=== PATIENT | female | born 1990 | race Caucasian/White ===

== ENCOUNTER 2017-04-24 15:26 | Emergency (ER) | payer OTHER ==
--- NOTE | 2017-04-24 16:52 | ER Document Report ---
HPI - HPI Patient complains to provider of: Medication refill Onset: Other - Past month Onset/Duration: Gradual Quality of pain: No pain Pain Level: Denies Context: States that she just recently ran out of her metformin and was out of her glipizide for the past month. Patient states that she went to the [facility] who wrote her prescriptions initially and was told that she would have to schedule appointment. Patient states there is no open appointments until months in the future. Patient denies any problems except for generalized fatigue. Patient states that she does have an appointment with a psychiatric specialist in [place] next month. Patient is just wanting a prescription to bridge her until she can see the psychiatric specialist to refill her medications. Associated Symptoms: Other - Fatigue. denies: Body/muscle aches, Chest pain, Chills, Nonproductive cough, Productive cough, Fever, Nausea, Vomiting Exacerbated by: Denies Relieved by: Denies Similar symptoms previously: Yes Recently seen / treated by doctor: No - ROS ROS below otherwise negative: Yes Systems Reviewed and Negative: Yes All other systems reviewed and negative - CONSTITUTIONAL Constitutional: DENIES: Fever, Chills - EENT EENT: DENIES: Sore Throat - NEURO Neurology: DENIES: Headache, Weakness - CARDIOVASCULAR Cardiovascular: DENIES: Chest pain - RESPIRATORY Respiratory: DENIES: Trouble Breathing, Coughing - GASTROINTESTINAL Gastrointestinal: DENIES: Abdominal Pain, Nausea, Patient vomiting - URINARY Urinary: DENIES: Dysuria - REPRODUCTIVE Reproductive: DENIES: : - MUSCULOSKELETAL Musculoskeletal: DENIES: Extremity pain, Back Pain, Neck Pain - DERM Skin Color: Normal Skin Problems: None Past Medical History - General Information source: Patient - Social History Smoking Status: Never Smoker Frequency of alcohol use: None Drug Abuse: None Lives with: Family Family History: CAD, DM, Hypertension Patient has suicidal ideation: No Patient has homicidal ideation: No - Past Medical History Cardiac Medical History: Denies: Hx Coronary Artery Disease Pulmonary Medical History: Denies: Hx COPD Neurological Medical History: Denies: Hx Cerebrovascular Accident Endocrine Medical History: Reports: Hx Diabetes Mellitus Type 2 Renal/ Medical History: Denies: Hx Ovarian Cysts, Hx Peritoneal Dialysis Psychiatric Medical History: Reports: Hx Anxiety, Hx Depression Surgical Hx: Negative Past Surgical History: Denies: Hx Abdominal Surgery - Immunizations Hx Diphtheria, Pertussis, Tetanus Vaccination: Yes Vertical Provider Document - CONSTITUTIONAL Agree With Documented VS: Yes Exam Limitations: No Limitations General Appearance: WD/WN, No Apparent Distress, Obese - morbidly - INFECTION CONTROL TRAVEL OUTSIDE OF THE [place] IN LAST 30 DAYS: No - HEENT HEENT: Atraumatic, Normocephalic - NECK Neck: Normal Inspection, Supple - RESPIRATORY Respiratory: Breath Sounds Normal, No Respiratory Distress, Chest Non-Tender O2 Sat by Pulse Oximetry: 99 - CARDIOVASCULAR Cardiovascular: Regular Rate, Regular Rhythm, No Murmur - GI/ABDOMEN Gastrointestinal: Abdomen Soft, Abdomen Non-Tender - BACK Back: Normal Inspection. negative: CVA Tenderness-Right, CVA Tenderness-Left - MUSCULOSKELETAL/EXTREMETIES Musculoskeletal/Extremeties: MAEW - NEURO Level of Consciousness: Awake, Alert, Appropriate Motor/Sensory: No Motor Deficit - DERM Integumentary: Warm, Dry, No Rash Course - Re-evaluation Re-evalutation: 04/24/17 16:58 provider called and confirmed medication doses from her [facility] pharmacy - Vital Signs Vital signs: Temp Pulse Resp BP Pulse Ox 98.0 F 83 16 133/88 H 99 04/24/17 15:35 04/24/17 15:35 04/24/17 15:35 04/24/17 15:35 04/24/17 15:35 - Laboratory Laboratory results interpreted by me: 04/24/17 15:39 POC Glucose 212 H Discharge - Discharge Clinical Impression: Hx of diabetes mellitus Condition: Stable Disposition: HOME, SELF-CARE Instructions: Diabetes ([facility]) Additional Instructions: Return immediately for any new or worsening symptoms Followup with your primary care provider, call tomorrow to make a followup appointment Follow up with your psychiatric specialist next month as planned Prescriptions: Glipizide [Glucotrol Xl] 10 mg PO DAILY #30 tab.er.24 Metformin HCl [Glucophage] 1,000 mg PO BID #30 tablet Referrals: [facility] [Provider Group] - Follow up tomorrow
[2017-04-24 17:17] VITALS: BP 121/76
== END 2017-04-24 17:15 | disposition home or self-care (01) ==
LOC: ER 15:26
DX: Z76.0 Encounter for issue of repeat prescription (principal); E11.9 Type 2 diabetes mellitus without complications; R53.83 Other fatigue
CPT/HCPCS: 82962; 99284

== ENCOUNTER 2020-08-26 19:52 | Emergency (ER) | payer OTHER ==
[2020-08-26] MEDS ORDERED: NORMAL SALINE 1000 ML 1,000 ML IV ONE (20:37)
[2020-08-26] MEDS ORDERED: ONDANSETRON HCL INJ/PF 4 MG/2 ML SDV IV ONE (20:37)
--- NOTE | 2020-08-26 20:38 | ER Document Report ---
ED Medical Screen (RME) - General Chief Complaint: High Blood Sugar Stated Complaint: POSS HIGH BLOOD SUGAR/VOMITING Time Seen by Provider: 08/26/20 20:34 Notes: HPI: 30-year-old female who is a type II diabetic presenting for nausea vomiting and diarrhea today. [place] fine yesterday. Has had chills no definitive fevers. Patient feels like this is her blood sugar being elevated causing her vomiting, declines COVID testing. Complains of generalized abdominal pain denies dysuria. PHYSICAL EXAMINATION: Mild generalized abdominal tenderness on palpation limited exam by triage process. Patient blood sugar was 275. Patient actually nause ated in triage. Mildly tachycardic I have greeted and performed a rapid initial assessment of this patient. A comprehensive ED assessment and evaluation of the patient, analysis of test results and completion of medical decision making process will be conducted by an additional ED providers. TRAVEL OUTSIDE OF THE [place] IN LAST 30 DAYS: No - Related Data Allergies/Adverse Reactions: diphenhydramine [From Benadryl] Allergy (Verified 10/08/16 17:22) Past Medical History - Past Medical History Cardiac Medical History: Denies: Hx Coronary Artery Disease Pulmonary Medical History: Denies: Hx COPD Neurological Medical History: Denies: Hx Cerebrovascular Accident Endocrine Medical History: Reports: Hx Diabetes Mellitus Type 2 Renal/ Medical History: Denies: Hx Ovarian Cysts, Hx Peritoneal Dialysis Psychiatric Medical History: Reports: Hx Anxiety, Hx Depression Past Surgical History: Denies: Hx Abdominal Surgery - Immunizations Hx Diphtheria, Pertussis, Tetanus Vaccination: Yes Physical Exam - Vital signs Vitals: Temp Pulse Resp BP Pulse Ox 98.0 F 109 H 20 140/78 H 96 08/26/20 19:58 08/26/20 19:58 08/26/20 19:58 08/26/20 19:58 08/26/20 19:58 Course - Vital Signs Vital signs: Temp Pulse Resp BP Pulse Ox 98.0 F 109 H 20 140/78 H 96 08/26/20 19:58 08/26/20 19:58 08/26/20 19:58 08/26/20 19:58 08/26/20 19:58 - Laboratory Laboratory results interpreted by me: 08/26/20 20:01 POC Glucose 275 H
[2020-08-26 21:06] LABS: ABSOLUTE LYMPHOCYTES (AUTO) 1.3 10^3/uL (0.5-4.7); ABSOLUTE MONOCYTES (AUTO) 0.3 10^3/uL (0.1-1.4); ABSOLUTE NEUT (AUTO) 8.3 10^3/uL (1.7-8.2); BASOPHILS % (AUTO) 0.3 % (0-2); EOSINOPHILS % (AUTO) 0.1 % (0-6); HEMATOCRIT 41.9 % (36.0-47.0); HEMOGLOBIN 14.3 g/dL (12.0-15.5); LYMPHOCYTES % (AUTO) 12.7 % (13-45); MEAN CORPUSCULAR HEMOGLOBIN 28.1 pg (27.0-33.4); MEAN CORPUSCULAR HGB CONC 34.1 g/dL (32.0-36.0); MEAN CORPUSCULAR VOLUME 82 fl (80-97); MONOCYTES % (AUTO) 3.5 % (3-13); PLATELET COUNT 423 10^3/uL (150-450); RED BLOOD COUNT 5.09 10^6/uL (3.72-5.28); RED CELL DISTRIBUTION WIDTH 13.6 % (11.5-14.0); SEGMENTED NEUTROPHILS % (AUTO) 83.4 % (42-78); TOTAL CELLS COUNTED % (AUTO) 100 %; WHITE BLOOD COUNT 9.9 10^3/uL (4.0-10.5)
[2020-08-26 21:12] LABS: VENOUS BLOOD BASE EXCESS -2.4 mmol/L; VENOUS BLOOD HCO3 20.5 mmol/L (20-32); VENOUS BLOOD PCO2 30.8 mmHg (35-63); VENOUS BLOOD PH 7.44 (7.30-7.42)
[2020-08-26 21:21] LABS: APPEARANCE,URINE CLEAR; BILIRUBIN,URINE NEGATIVE (NEGATIVE); COLOR,URINE YELLOW; GLUCOSE, URINE 150 mg/dL (NEGATIVE); KETONES,URINE 80 mg/dL (NEGATIVE); LEUKOCYTE ESTERASE,URINE NEGATIVE (NEGATIVE); NITRITE,URINE NEGATIVE (NEGATIVE); PROTEIN,URINE 100 mg/dL (NEGATIVE); URINE SPECIFIC GRAVITY 1.053; UROBILINOGEN,URINE NEGATIVE mg/dL (<2.0)
[2020-08-26 21:33] LABS: ALBUMIN 4.5 g/dL (3.5-5.0); ALKALINE PHOSPHATASE 97 U/L (38-126); ANION GAP 15 (5-19); ASPARTATE AMINO TRANSFERASE 21 U/L (14-36); BILIRUBIN,DIRECT 0.2 mg/dL (0.0-0.4); BILIRUBIN,TOTAL 0.4 mg/dL (0.2-1.3); BLOOD UREA NITROGEN 8 mg/dL (7-20); CALCIUM 9.6 mg/dL (8.4-10.2); CARBON DIOXIDE 22 mmol/L (22-30); CHLORIDE 100 mmol/L (98-107); GLUCOSE 277 mg/dL (75-110); TOTAL PROTEIN 7.5 g/dL (6.3-8.2)
--- NOTE | 2020-08-26 21:42 | ER Document Report ---
ED GI/ - General Chief Complaint: Vomiting Stated Complaint: POSS HIGH BLOOD SUGAR/VOMITING Time Seen by Provider: 08/26/20 20:34 Notes: Patient 30-year-old female presents emergency department with a chief complaint of nausea, vomiting, and diarrhea. Patient is a type II diabetic and is currently on metformin and Victoza. Patient states that she started vomiting today. Denies any sick contacts. States that she ate some [employer] today, but had her nausea and vomiting prior to leaving the [employer] puppies. Patient denies any blood in her vomit. States that her vomitus is yellow in color. TRAVEL OUTSIDE OF THE [place] IN LAST 30 DAYS: No - Related Data Allergies/Adverse Reactions: diphenhydramine [From Benadryl] Allergy (Verified 10/08/16 17:22) Past Medical History - Social History Smoking Status: Never Smoker Family History: CAD, DM, Hypertension - Past Medical History Cardiac Medical History: Denies: Hx Coronary Artery Disease Pulmonary Medical History: Denies: Hx COPD Neurological Medical History: Denies: Hx Cerebrovascular Accident Endocrine Medical History: Reports: Hx Diabetes Mellitus Type 2 Renal/ Medical History: Denies: Hx Ovarian Cysts, Hx Peritoneal Dialysis Psychiatric Medical History: Reports: Hx Anxiety, Hx Depression Past Surgical History: Denies: Hx Abdominal Surgery - Immunizations Hx Diphtheria, Pertussis, Tetanus Vaccination: Yes Review of Systems - Review of Systems Notes: REVIEW OF SYSTEMS: CONSTITUTIONAL : Denies recent illness. Denies recent unintentional weight loss. Denies fever, chills, or sweats. EENT: Denies eye, ear, throat, or mouth pain, discharge, or symptoms. Denies nasal or sinus congestion. CARDIOVASCULAR: Denies chest pain. RESPIRATORY: Denies shortness of breath, cough, congestion, difficulty breat donna, or wheezing. GASTROINTESTINAL: See HPI. GENITOURINARY: Denies difficulty urinating, burning, blood in urine, urgency or frequency. MUSCULOSKELETAL: Denies neck and back pain. Denies joint pain or swelling. SKIN: Denies rash, itchiness, or lesions HEMATOLOGIC : Denies easy bruising or bleeding. LYMPHATIC: Denies swollen, painful, enlarged glands. NEUROLOGICAL: Denies no numbness or tingling denies weakness. Denies headache. Denies altered mental status. Denies alteration in speech. PSYCHIATRIC: Denies stress, anxiety, alteration in sleep patterns, or depression. All other systems reviewed and negative. Physical Exam - Vital signs Vitals: Temp Pulse Resp BP Pulse Ox 98.0 F 109 H 20 140/78 H 96 08/26/20 19:58 08/26/20 19:58 08/26/20 19:58 08/26/20 19:58 08/26/20 19:58 - Notes Notes: PHYSICAL EXAMINATION: GENERAL: Appears well, healthy, well-nourished, no acute distress. HEAD: Normocephalic, atraumatic. EYES: PERRL, conjunctiva normal, all extraocular movements intact, sclera nonicteric ENT: Dry mucous membranes. NECK: Supple, no noticeable swelling, redness, rash. Normal range of motion. LUNGS: Equal breath sounds bilaterally and clear to auscultation. No wheezes rales or rhonchi. CARDIOVASCULAR: S1-S2, regular rate, regular rhythm. Radial pulses 2+, normal. ABDOMEN: Normoactive bowel sounds. Soft, slightly tender mid upper abdomen, no guarding, no rebound tenderness, and no masses palpated. EXTREMITIES: Normal strength and range of motion, no pitting or edema. No cyanosis. NEUROLOGICAL: Moves all extremities upon command. Strength 5/5 in all extremities. PSYCH: Normal mood, normal affect. SKIN: Warm, dry. No rash, lesions, ulcerations noted. Normal skin turgor. Course - Re-evaluation Re-evalutation: 08/26/20 21:43 Hematology is unremarkable. No leukocytosis noted. There is a left shift, but this is most likely due to the patient vomiting. Blood gas is normal. Chemistries are unremarkable, other than her glucose being 277. No elevated anion gap. Lipase and LFTs are normal. 08/26/20 23:08 Blood sugar was rechecked and her blood sugar was 235. Patient states that she still has some abdominal discomfort. Ultrasound was unremarkable. I suspect patient has a viral gastroenteritis. Discussed possibility of COVID. She is opting to get tested for COVID-19. The patient was evaluated during the global COVID-19 pandemic and that diagnosis was suspected/considered upon their initial presentation. Their evaluation, treatment and testing was consistent with current guidelines for patients who present with complaints or symptoms that may be related to COVID-19. Patient agrees to quarantine until results come back. Follow-up precautions were given. Verbal discharge instructions were given to the patient. They verbalized understanding. They are stable for discharge. - Vital Signs Vital signs: Temp Pulse Resp BP Pulse Ox 98.8 F 84 14 140/70 H 98 08/26/20 23:49 08/26/20 23:49 08/26/20 23:49 08/26/20 23:49 08/26/20 23:49 - Laboratory Result Diagrams: 08/26/20 20:48 08/26/20 20:48 Laboratory results interpreted by me: 08/26/20 08/26/20 08/26/20 20:01 20:48 20:48 Lymph % (Auto) 12.7 L Absolute Neuts (auto) 8.3 H Seg Neutrophils % 83.4 H VBG pH VBG pCO2 Sodium 136.5 L Glucose 277 H POC Glucose 275 H Urine Protein Urine Glucose (UA) Urine Ketones Urine Ascorbic Acid 08/26/20 08/26/20 08/26/20 20:48 20:48 22:16 Lymph % (Auto) Absolute Neuts (auto) Seg Neutrophils % VBG pH 7.44 H VBG pCO2 30.8 L Sodium Glucose POC Glucose 235 H Urine Protein 100 H Urine Glucose (UA) 150 H Urine Ketones 80 H Urine Ascorbic Acid 40 H Discharge - Discharge Clinical Impression: Viral gastroenteritis, Suspected COVID-19 virus infection Condition: Stable Disposition: HOME, SELF-CARE Instructions: COVID-19 Guidance for Persons Under Investigation, Antinausea Medication ([facility]), Clear Liquid Diet ([facility]), Gastroenteritis (adult) ([facility]), Intravenous (IV) Fluids ([facility]), Vomiting ([facility]) Additional Instructions: Your symptoms are likely due to a viral illness and should resolve in the next several days. You can take [id number] loperamide also known as Imodium as needed for diarrhea per box instructions. Continue to stay hydrated with plenty of solution such as Gatorade Zero or Pedialyte. You are being prescribed Zofran to take as needed for nausea and vomiting. You can also take Pepcid and Carafate to help with your stomach pain. Take it for the next couple of days to help with your stomach pain. Please return if you develop severe abdominal pain, pass out, become unable to tolerate any oral fluids for 12 more hours, or any other symptoms that are concerning to you. You are also being tested for COVID-19. The health department will call you with results. If they are positive, please stay in quarantine for the next 2 weeks. Prescriptions: Sucralfate [Carafate 1 gm Tablet] 1 gm PO ACHS #20 tablet Famotidine [Pepcid 20 mg Tablet] 20 mg PO BID #12 tablet Ondansetron [Zofran Odt 4 mg Tablet] 1 - 2 tab PO Q4H PRN #15 tab.rapdis PRN Reason: For Nausea/Vomiting
--- NOTE | 2020-08-26 23:02 | RADIOLOGY REPORT (SQ) ---
EXAM DESCRIPTION: US ABDOMEN LIMITED COMPLETED DATE/TME: 08/26/2020 21:40 CLINICAL HISTORY: 30 years, Female, epigastric pain; vomiting COMPARISON: None. TECHNIQUE: Axial 2-D grayscale images of the abdomen were acquired. Doppler was utilized. LIMITATIONS: None. FINDINGS: Visualized portions of the abdominal aorta appear normal. Visualized portions of the pancreas appear echogenic, suggesting fatty replacement. The liver is diffusely echogenic and coarsened in echotexture. It measures 17.1 cm in length. Antegrade flow is documented within the main portal vein. An area of hypoechogenicity is noted about the right hepatic lobe adjacent to the gallbladder fossa, potentially corresponding to an area of focal fatty sparing. Right kidney measures 11.2 x 5.1 x 5.3 cm in size. No hydronephrosis. Gallbladder wall thickness measures 1 mm. No gallstones. Sonographic Cruz sign was negative. Common bile duct measures 3 mm. No significant free fluid is identified within the imaged abdomen. IMPRESSION: No acute sonographic abnormality. Echogenic liver which is coarsened in echotexture, suggestive of an underlying diffuse hepatocellular disease such as hepatic steatosis. Area of hypoechogenicity located adjacent to the gallbladder fossa most likely corresponds to a focus of fatty sparing. However, confirmation with multiphasic CT or MR is recommended on a nonemergent basis. copyright 2010 [email or web address]- All Rights Reserved
[2020-08-26] MEDS ORDERED: FAMOTIDINE INJ/PF 20 MG/2 ML SDV IV ONE (23:03)
[2020-08-26] MEDS ORDERED: SUCRALFATE 1 GM TABLET PO ONE (23:04)
[2020-08-26] MEDS ORDERED: ONDANSETRON ODT 4 MG TAB (6 TAB/ER DISP) PO PRN (23:10)
[2020-08-26 23:50] VITALS: BP 140/70
== END 2020-08-26 23:50 | disposition home or self-care (01) ==
LOC: ER 19:52
DX: A08.4 Viral intestinal infection, unspecified (principal); R11.2 Nausea with vomiting, unspecified; R19.7 Diarrhea, unspecified; R10.84 Generalized abdominal pain; E11.9 Type 2 diabetes mellitus without complications; Z79.84 Long term (current) use of oral hypoglycemic drugs; Z88.8 Allergy status to other drugs, medicaments and biological substances; Z20.828 Contact with and (suspected) exposure to other viral communicable diseases
CPT/HCPCS: 99284; 96361; 96374; 96375; 36415; 82962; 83690; 85025; 87635; 81025; 80053; 81001; 82803; 76705; J2405; J7030; S0028; C9803